=== PATIENT | male | born 1945 | race Two or more races ===

== ENCOUNTER 2017-11-05 11:55 | Outpatient (CLI) | payer OTHER ==
[~2017-11-05] VITALS: Ht 172.7 cm; Wt 81.6 kg
[2017-11-05] MEDS ORDERED: FLONASE16 GM NASAL (13:15)
[2017-11-05] MEDS ORDERED: ZYRTEC10 MG PO (13:15)
== END 2017-11-05 12:15 | disposition home or self-care (01) ==
LOC: OFIC 805 11:55
DX: J31.0 Chronic rhinitis (principal); H61.23 Impacted cerumen, bilateral

== ENCOUNTER → 2017-11-28 | Emergency (ER) | payer OTHER ==
[~2017-11-28] VITALS: Ht 152.4 cm; Wt 81.6 kg
[~2017-11-28] MED LIST: FLONASE16 GM NASAL; KETO10TA2 PO; NORFLEX100MG PO; VALSARTAN-HCTZ1 EAC1; ZYRTEC10 MG PO
== END | disposition home or self-care (01) ==
LOC: ER 09:38
DX: S40.011A Contusion of right shoulder, initial encounter (principal); S70.01XA Contusion of right hip, initial encounter; S13.4XXA Sprain of ligaments of cervical spine, initial encounter; V49.9XXA Car occupant (driver) (passenger) injured in unspecified traffic accident, initial encounter; Y93.89 Activity, other specified; Y92.488 Other paved roadways as the place of occurrence of the external cause; Y99.8 Other external cause status

== ENCOUNTER 2019-07-09 07:46 | Outpatient (CLI) | payer OTHER | END 2019-07-09 08:06 | disposition home or self-care (01) | LOC: LAB 07:46 | DX: E55.9 Vitamin D deficiency, unspecified (principal); M85.88 Other specified disorders of bone density and structure, other site; E21.2 Other hyperparathyroidism; E88.89 Other specified metabolic disorders; M81.8 Other osteoporosis without current pathological fracture; E56.1 Deficiency of vitamin K; N41.8 Other inflammatory diseases of prostate ==

== ENCOUNTER 2019-07-09 09:02 | Outpatient (CLI) | payer OTHER | END 2019-07-09 10:00 | disposition home or self-care (01) | LOC: SONOGRAMA 09:02 | DX: M79.644 Pain in right finger(s) (principal); M54.2 Cervicalgia; M54.6 Pain in thoracic spine; M81.0 Age-related osteoporosis without current pathological fracture ==

== ENCOUNTER → 2019-07-15 | Outpatient (CLI) | payer OTHER | END | disposition home or self-care (01) | LOC: RAD 11:25 | DX: M25.551 Pain in right hip (principal) ==

== ENCOUNTER 2020-02-28 07:29 | Outpatient (CLI) | payer OTHER | END 2020-02-28 07:39 | disposition home or self-care (01) | LOC: NUCLEAR 07:29 | PROVIDERS: ATTEND Internal Medicine | DX: R10.9 Unspecified abdominal pain (principal) | CPT/HCPCS: 78227; A9537; J2805 ==

== ENCOUNTER 2020-08-17 12:21 | Emergency (ER) | payer OTHER ==
[~2020-08-17] VITALS: Ht 170.2 cm; Wt 85.3 kg
== END 2020-08-17 20:15 | disposition home or self-care (01) ==
LOC: ER 12:21
DX: M51.36 Other intervertebral disc degeneration, lumbar region (principal); N20.0 Calculus of kidney; M54.2 Cervicalgia

== ENCOUNTER 2020-09-15 06:47 | Day surgery (SDC) | payer OTHER ==
[~2020-09-15 06:47] MED LIST changes: +CATAFLAN; +GABAPENTIN300 M2 PO
== END 2020-09-15 13:30 | disposition home or self-care (01) ==
LOC: CIR.AMB 06:47
PROVIDERS: ATTEND Anesthesiology Pain Medicine
DX: M51.37 Other intervertebral disc degeneration, lumbosacral region (principal); M47.817 Spondylosis without myelopathy or radiculopathy, lumbosacral region; Z20.822 Contact with and (suspected) exposure to COVID-19

== ENCOUNTER 2020-10-17 14:39 | Inpatient (IN) | payer OTHER ==
[~2020-10-17] VITALS: Ht 172.7 cm
[2020-10-17] MEDS ORDERED: CARDURA1 MG (14:47)
[2020-10-18] MEDS ORDERED: GABAPENTIN400 MG (08:12)
[2020-10-18] MEDS ORDERED: IRBESARTAN75 MG (08:13)
[2020-10-18] MEDS ORDERED: GENTLE LAXATIVE5 MG (08:13)
[2020-10-18] MEDS ORDERED: ZANAFLEX2 MG (08:13)
[2020-10-18] MEDS ORDERED: DULOXETINE HCL60 MG (08:13)
[2020-10-18] MEDS ORDERED: TRAMADOL HCL50 MG (08:13)
[2020-10-31] MEDS ORDERED: AMOX-CLAV 875-1 EAC1 PO (13:34)
[2020-10-31] MEDS ORDERED: INTESTINEX680 M1 PO (13:35)
[2020-10-31] MEDS ORDERED: PEPCID AC20 MG PO (13:35)
[2020-10-31] MEDS ORDERED: IRBESARTAN75 MG PO (13:36)
[2020-10-31] MEDS ORDERED: NEURONTIN600 MG PO (13:37)
[2020-10-31] MEDS ORDERED: LIDODERM1 EACH TOP (13:37)
[2020-10-31] MEDS ORDERED: VITAMIN B-121000 MC2 SL (13:40)
[2020-10-31] MEDS ORDERED: CARdura 2MG TABLET PO (13:41)
== END 2020-10-31 15:21 | disposition home or self-care (01) | DRG 540 ==
LOC: ER 14:39 → SEC-K 17:01 → MEDJ 17:01
PROVIDERS: ADMIT Internal Medicine; ATTEND Internal Medicine
PROC: BR30ZZZ Magnetic Resonance Imaging (MRI) of Cervical Spine (ICD-10-PCS; principal; 2020-10-22)
PROC: BR30Y0Z Magnetic Resonance Imaging (MRI) of Cervical Spine using Other Contrast, Unenhanced and Enhanced (ICD-10-PCS; 2020-10-22)
DX: M46.26 Osteomyelitis of vertebra, lumbar region (principal); M48.36 Traumatic spondylopathy, lumbar region; M46.46 Discitis, unspecified, lumbar region; K08.89 Other specified disorders of teeth and supporting structures; M48.061 Spinal stenosis, lumbar region without neurogenic claudication; Z20.822 Contact with and (suspected) exposure to COVID-19
CPT/HCPCS: 72142; 72149

== ENCOUNTER 2021-08-02 09:53 | Outpatient (CLI) | payer OTHER ==
[~2021-08-02 09:53] MED LIST changes: +AMOX-CLAV 875-1 EAC1 PO; +CARDURA1 MG; +CARdura 2MG TABLET PO; +DULOXETINE HCL60 MG; +GABAPENTIN400 MG; +GENTLE LAXATIVE5 MG; +INTESTINEX680 M1 PO; +IRBESARTAN75 MG; +IRBESARTAN75 MG PO; +LIDODERM1 EACH TOP; +NEURONTIN600 MG PO; +PEPCID AC20 MG PO; +TRAMADOL HCL50 MG; +VITAMIN B-121000 MC2 SL; +ZANAFLEX2 MG
== END 2021-08-02 10:02 | disposition home or self-care (01) ==
LOC: RAD 09:53
PROVIDERS: ATTEND Orthopaedic Surgery
DX: M25.551 Pain in right hip (principal)

== ENCOUNTER 2021-10-02 08:00 | Outpatient (CLI) | payer OTHER | END 2021-10-02 08:30 | disposition home or self-care (01) | LOC: PPH VACUNA 08:00 | PROVIDERS: ATTEND Emergency Medicine Pediatric Emergency Medicine | DX: Z23 Encounter for immunization (principal) ==

== ENCOUNTER → 2021-10-02 11:43 | Outpatient (CLI) | payer OTHER | END | disposition home or self-care (01) | LOC: LAB 11:43 | PROVIDERS: ATTEND Orthopaedic Surgery | DX: E55.9 Vitamin D deficiency, unspecified (principal); M85.9 Disorder of bone density and structure, unspecified; E56.1 Deficiency of vitamin K ==

== ENCOUNTER 2021-10-05 10:38 | Outpatient (CLI) | payer OTHER | END 2021-10-05 10:41 | disposition home or self-care (01) | LOC: NUCLEAR 10:38 | PROVIDERS: ATTEND Orthopaedic Surgery | DX: M81.0 Age-related osteoporosis without current pathological fracture (principal) ==

== ENCOUNTER → 2024-08-03 10:41 | Outpatient (CLI) | payer OTHER | END | disposition home or self-care (01) | LOC: LAB 10:41 | PROVIDERS: ATTEND Orthopaedic Surgery | DX: E55.9 Vitamin D deficiency, unspecified (principal); M85.9 Disorder of bone density and structure, unspecified; E56.1 Deficiency of vitamin K ==